=== PATIENT | female | born 1955 | race Caucasian/White ===

== ENCOUNTER 2016-07-26 08:00 | Outpatient (RCR) | payer BC, SELFPAY ==
[2016-07-26 16:13] VITALS: BP 144/82; PULSE 105; RESP 18; TEMP 36.6; O2SAT 96; BMI 36.9
[2016-07-26 16:17] VITALS: BMI 36.9
--- NOTE | 2016-07-26 23:07 | HP.ONC_ITS ---
DATE OF SERVICE: 07/26/2016 CHIEF COMPLAINT: Referred for management of lung cancer. HISTORY OF PRESENTING ILLNESS: A 60-year-old woman was found to have a right lung mass with mediastinal nodes. She had a chest CT on May 27, 2016, which showed right lower lobe and upper lobe mass measuring 6 x 6.6 x 12.5 cm mass encasing the right lower lobe bronchus and pulmonary artery segments. She was referred to [facility] and had EBUS on July 05, 2016, right paratracheal node and right hilar node biopsy also showed metastatic adenocarcinoma. She had a PET/CT scan on July 21, 2016, which showed hypermetabolic activity in the right hemithorax, right thoracic perihilar and right lower anterior medial hemithorax, scattered mediastinal lymph nodes showed mild increased hypermetabolic activity. She is now referred for further management. PAST MEDICAL HISTORY: Significant for hypertension. ALLERGIES: None. MEDICATIONS: Losartan and HCTZ, metoprolol. FAMILY HISTORY: Father and sister had lung cancer. Another sister had melanoma. SOCIAL HISTORY: Denies cigarette smoking or alcohol use. Works as a bailiff. PHYSICAL EXAMINATION: VITAL SIGNS: Reviewed. Blood pressure 144/82, pulse is 100 per minute, respirations 18 per minute, temperature 97.9. GENERAL: Middle-aged woman in no acute distress. SKIN: No eruptions. HEENT: Normocephalic, atraumatic. Eyes are anicteric. No pallor. Extraocular muscles are intact. Mouth, no ulcerations. NECK: Supple. No goiter. Lymph nodes are nonpalpable in the cervical or axillae. CHEST: Symmetrical. LUNGS: Clear to auscultation. HEART: Regular S1, S2. ABDOMEN: Soft. No masses. [employer] is within normal limits. MUSCULOSKELETAL SYSTEM: Within normal limits. EXTREMITIES: No cyanosis, clubbing or edema. RECORDS: EBUS, July 05, 2016, reviewed shows no endobronchial lesion, subcarinal area shows 20 mm node, right paratracheal area shows 22 mm node, right hilar area node shows 20 mm node, sampling of the left hilar, right hilar, subcarinal areas in addition to the right paratracheal area was sampled. FNA of right paratracheal lymph node and right hilar lymph node shows metastatic adenocarcinoma. Imaging: PET/CT scan, July 21, 2016, reviewed as in HPI. ASSESSMENT: Non-small cell lung cancer, adenocarcinoma type, stage IIIB (T4N2M0), clinically the patient is not a candidate for surgery as she will require pneumonectomy. I discussed options in that situation with the patient, which includes neoadjuvant chemotherapy, which may be followed by surgery or chemoradiation therapy as definitive therapy. If surgery is done up front, adjuvant therapy may be an option. Discussed risks, benefits, side effects, and prognosis with the patient. The patient agrees to start neoadjuvant chemotherapy next week, suggested therapy with cisplatin and Alimta every 21 days x2 cycles, then reassess with CT scan. The patient agrees to proceed. PLAN: Is to start neoadjuvant chemotherapy with cisplatin 75 mg per meter squared and Alimta 500 mg per meter squared IV every 21 days next week and will do 2 cycles, then reassess with a CT scan of the chest. Will also request a thoracic surgery consult at [facility]. The patient will return to the clinic in 1 week to start chemotherapy. MD Sid Alamo C: Niraj Higginbotham T: [facility] JOB: [id number]
== END 2017-02-10 12:01 ==
LOC: OMD 15:49 → ONC 08-02 08:00
PROVIDERS: Family Provider Family Medicine; PCP Family Medicine; Visit Provider Internal Medicine Medical Oncology
DX: C34.31 Malignant neoplasm of lower lobe, right bronchus or lung (principal)